=== PATIENT | female | born 1950 | race Caucasian/White ===

== ENCOUNTER 2018-05-24 12:39 | Outpatient (CLI) | payer MEDICARE, BC ==
--- NOTE | 2018-05-24 12:53 | RAD ---
TWO VIEWS CHEST: HISTORY: Dyspnea. COMPARISON: 04/29/12. FINDINGS: Slight elongation of the aorta. Normal cardiac silhouette. The pulmonary vessels and hilum are norm al. Costophrenic angles are clear. No consolidation or masses. No pneumothorax or osseous abnormal ities. Bilateral breast augmentation implants are noted. Stable density in the right suprahilar region. IMPRESSION: No acute cardiopulmonary process. POS: [facility]
== END 2018-05-24 12:40 | disposition home or self-care (01) ==
LOC: RAD 12:39
PROVIDERS: ATTEND Internal Medicine
DX: R06.00 Dyspnea, unspecified (principal)
CPT/HCPCS: 71046

== ENCOUNTER 2018-07-02 12:06 | Outpatient (CLI) | payer MEDICARE, BC | END 2018-07-02 12:07 | disposition home or self-care (01) | LOC: CP 12:06 | PROVIDERS: ATTEND Internal Medicine | DX: J45.909 Unspecified asthma, uncomplicated (principal); R06.09 Other forms of dyspnea | CPT/HCPCS: 94060; 94727 ==

== ENCOUNTER 2018-12-05 16:00 | Outpatient (CLI) | payer MEDICARE, BC | END 2018-12-05 16:01 | disposition home or self-care (01) | LOC: SLEEPLAB 16:00 | PROVIDERS: ATTEND Internal Medicine | DX: G47.33 Obstructive sleep apnea (adult) (pediatric) (principal); R53.83 Other fatigue; R09.89 Other specified symptoms and signs involving the circulatory and respiratory systems; R51 Headache; R06.83 Snoring; K21.9 Gastro-esophageal reflux disease without esophagitis; R35.1 Nocturia; I10 Essential (primary) hypertension | CPT/HCPCS: 95806 ==

== ENCOUNTER 2019-01-03 10:06 | Outpatient (CLI) | payer MEDICARE, BC ==
--- NOTE | 2019-01-03 11:06 | RAD ---
TWO VIEWS LUMBOSACRAL SPINE: COMPARISON: None. HISTORY: Multiple back injuries with left low back pain. FINDINGS: Two views lumbosacral spine show normal height and alignment of the vertebral bodies without fracture or subluxation. The L5-S1 intervertebral disk is narrowed. Moderate posterior facet arthrosis is s een in the lower lumbosacral spine. Osteophytes are seen surrounding L5-S1. IMPRESSION: Degenerative changes of the lower lumbosacral spine without acute osseous abnormality. POS: [facility]
== END 2019-01-03 10:07 | disposition home or self-care (01) ==
LOC: BICRAD 10:06
PROVIDERS: ATTEND Specialist
DX: M54.5 Low back pain (principal); M47.817 Spondylosis without myelopathy or radiculopathy, lumbosacral region
CPT/HCPCS: 72100

== ENCOUNTER 2019-10-28 06:25 | Outpatient (CLI) | payer MEDICARE, BC ==
[2019-10-28 15:45] LABS: Anion Gap 11 mmol/L (10-20); BUN (Urea Nitrogen) 23 mg/dL (9.8-20.1); Calc. Creatinine Clearance 0 mL/min (70-130); Calcium 9.3 mg/dL (7.8-10.44); Carbon Dioxide 27 mmol/L (23-31); Chloride 109 mmol/L (98-107); Estimated GFR-MDRD 67; Glucose 94 mg/dL (80-115); Potassium 4.2 mmol/L (3.5-5.1); Sodium 143 mmol/L (136-145)
== END 2019-10-28 06:26 | disposition home or self-care (01) ==
LOC: LABBT 06:25
PROVIDERS: ATTEND Neurological Surgery
DX: Z01.818 Encounter for other preprocedural examination (principal); M54.16 Radiculopathy, lumbar region
CPT/HCPCS: 80048; 93005; 93010

== ENCOUNTER 2019-11-03 06:21 | Day surgery (SDC) | payer MEDICARE, BC ==
[2019-10-28 14:10] VITALS: BMI 29.8
--- NOTE | 2019-11-02 16:02 | HP ---
HISTORY OF PRESENT ILLNESS: Ms. Rock is a very pleasant 68-year-old woman, here today for evaluation of a severe right lower extremity L5, potentially S1 pattern of pain, which she has had since the beginning of the year. She has treated this with time, exercise, medications, and epidural steroid injections with Dr. Guerrero. Although they helped her a great deal, her symptoms continued to worsen and return. Pains are significantly worsened when walking or standing for even short periods of time. MRI from the [facility] reveals a severe lateral recess stenosis at L4-L5 and L5-S1 that would potentially fit her symptoms. CURRENT PHYSICAL EXAMINATION: The patient is alert and oriented x3. Cranial nerve function is normal. Gait is normal. No ataxia. Lower extremity motor exam reveals 5/5 strength in all movements of the bilateral lower extremities. Positive right straight leg raise. PAST MEDICAL HISTORY: Significant for hypothyroidism, hypertension, and anxiety. CURRENT MEDICATIONS: 1. Gabapentin. 2. Furosemide. 3. Olmesartan. 4. Duloxetine. 5. Hydralazine. 6. Levothyroxine. PAST SURGICAL HISTORY: Thyroidectomy, unspecified neck surgery, and gastric sleeve. ALLERGIES: NO KNOWN DRUG ALLERGIES. ASSESSMENT: Lumbar radiculopathy. PLAN: Dr. Pizano met with the patient, reviewed imaging, advocated for a right L4 through S1 decompression with a right L5 foraminotomy. He explained to the patient the risks, benefits, and alternatives to the procedure. The patient expressed understanding and elected to move forward with surgery as discussed. I do believe the patient is mentally competent and capable of making medical decisions for herself. We will move forward with surgery as planned. Job ID: [id number]
[2019-11-03] MEDS ORDERED: Fentanyl 100 MCG/2 ML VIAL ONE ×3 (08:32→10:51)
[2019-11-03] MEDS ORDERED: Midazolam HCl 2 mg/2 ml Vial ONE (08:32)
[2019-11-03] MEDS ORDERED: Bupivacaine PF 0.5% 30 ML VIAL ONE (08:43)
[2019-11-03] MEDS ORDERED: Rocuronium Bromide 10 MG/ML (10ML VIAL) ONE (09:46)
[2019-11-03] MEDS ORDERED: Ketorolac Tromethamine 30 MG/ML VIAL ONE (09:46)
[2019-11-03] MEDS ORDERED: Lidocaine 1% PF 5 ML VIAL ONE (09:46)
[2019-11-03] MEDS ORDERED: PHENYLEPHRINE-NS 100 MCG/ML 10 ML SYRINGE ONE (09:46)
[2019-11-03] MEDS ORDERED: PROPOFOL 200 MG/20 ML VIAL ONE (09:46)
[2019-11-03] MEDS ORDERED: ePHEDrine/0.9% NaCl/PF SYRINGE 50 mg/10 ml ONE (09:46)
[2019-11-03] MEDS ORDERED: Ondansetron PF 4 MG/2 ML Vial ONE (09:46)
[2019-11-03] MEDS ORDERED: Dexamethasone 20 MG/5 ML VIAL ONE (09:46)
[2019-11-03] MEDS ORDERED: Glycopyrrolate 0.2 MG/ML 5 ML SYRINGE ONE (09:46)
[2019-11-03] MEDS ORDERED: Acetaminophen/Codeine 30-300mg Tablet ONE (11:45)
--- NOTE | 2019-11-03 11:48 | OP ---
DATE OF PROCEDURE: 11/03/2019 PATIENT SCHEDULING MANAGER: Adrian Helms PA-C INDICATION: Pain. DIAGNOSIS: Lumbar stenosis with lumbar radiculopathy. PROCEDURES PERFORMED: Right L4-L5, L5-S1 hemilaminectomy, medial facetectomy, right L5 foraminotomy. ANESTHESIA: General. DESCRIPTION OF PROCEDURE: The patient was brought into the operating room and placed under general anesthesia. She was flipped from the supine to prone position on the operating room table. A linear incision was planned spanning L4 through S1. After prepping and draping and after an appropriate perioperative pause, the incision was created. The soft tissues were swept right of midline. After confirming the appropriate level with C-arm fluoroscopy, high-speed cutting drill bit as well as 2, 3, and 4 mm Kerrisons were used to perform a complete hemilaminectomy of L5 and an inferior laminectomy along the inferior aspect of L4 on the right. This decompressed the L4-L5 and L5-S1 segments. The L5 nerve root was identified and followed out the foramina of L5, where a foraminotomy was also performed. After completing the decompression, the wound was irrigated. Hemostasis was maintained throughout. The wound was then closed in anatomic layers and a pressure dressing was applied. There were no known procedural complications. Job ID: [id number]
== END 2019-11-03 12:55 | disposition home or self-care (01) ==
LOC: SDC 06:21
PROVIDERS: ATTEND Neurological Surgery
PROC: 01NB0ZZ Release Lumbar Nerve, Open Approach (ICD-10-PCS; principal; 2019-11-03)
DX: M48.061 Spinal stenosis, lumbar region without neurogenic claudication (principal); M54.16 Radiculopathy, lumbar region; I10 Essential (primary) hypertension; E89.0 Postprocedural hypothyroidism; F41.9 Anxiety disorder, unspecified; Z79.899 Other long term (current) drug therapy
CPT/HCPCS: 76000; J0690; J1100; J1885; J2001; J2250; J2405; J2704; J3010; S0020

== ENCOUNTER 2020-09-23 09:27 | Outpatient (CLI) | payer MEDICARE, BC ==
--- NOTE | 2020-09-23 11:32 | ULT ---
VENOUS DOPPLER ULTRASOUND OF THE RIGHT LOWER EXTREMITY: Date: 09/23/2020 HISTORY: Right lower extremity edema. TECHNIQUE: Don scale ultrasound with color flow and spectral Doppler imaging of the deep venous system of the r ight lower extremity performed. FINDINGS: There is good flow, compression, and augmentation noted in the right common femoral, femoral, deep fe moral, popliteal, posterior tibial, and greater saphenous veins. IMPRESSION: No evidence of deep venous thrombosis in the right lower extremity. POS: [facility]
--- NOTE | 2020-09-23 11:38 | RAD ---
LEFT HIP 2 VIEWS:: Date: 09/23/2020 HISTORY: Left hip pain. FINDINGS/IMPRESSION: No fracture, dislocation, or bony destruction is seen. No significant arthritic changes are noted. POS: [facility]
== END 2020-09-23 09:28 | disposition home or self-care (01) ==
LOC: BICULT 09:27
PROVIDERS: ATTEND Specialist
DX: M25.552 Pain in left hip (principal)

== ENCOUNTER 2020-10-18 12:25 | Outpatient (CLI) | payer MEDICARE, BC ==
--- NOTE | 2020-10-18 14:18 | MRI ---
MRI LUMBAR SPINE NONCONTRAST: DATE: 10/18/2020 HISTORY: 69-year-old female COMPARISON: 01/10/2019 FINDINGS: 2.5 x 2 cm right renal cyst exophytically protruding from anterior parenchyma of right renal midpole, minimally larger than in 09/13/2015. There are 5 lumbar-type vertebrae. Vertebral body heights are maintained. Modic type II endplate kylah ow changes at L5-S1. No significant bone marrow edema at any level. Conus medullaris terminates at upper L2. T12-L1:Essentially normal L1-2:Minimal retrolisthesis of L1 on L2. Minimal disc bulge. No central or neural foraminal stenosis. No high-grade disc space narrowing. No interval change. L2-3:Mild disc bulge. Minimal retrolisthesis of L2 on L3. No high-grade disc space narrowing. Mild bi lateral facet DJD. No significant central spinal canal stenosis. Mild bilateral neural foraminal stenosis. The neural foraminal stenosis appears minimally worse than before. L3-4:Severe bilateral facet DJD causes grade 1 anterolisthesis of L3 on L4. Mild disc space narrowing . Prominent diffuse disc bulge. Moderate to severe ligamentum flavum thickening. The disc bulge is slightly larger than before. Previously, there was a superimposed central, left paracentral small dis c extrusion. That is currently smaller than before, and much less conspicuous now. Moderate central spinal canal stenosis, similar to prior MRI. Mild to moderate bilateral neural foraminal stenosis, si milar to prior MRI. L4-5:Mild to moderate disc space narrowing. Prominent diffuse disc bulge. Superimposed shallow centra l and bilateral paracentral disc protrusion appears slightly larger than before, and it further indents the thecal sac. Moderate to severe right and moderate left facet DJD. Mild to moderate right and mild left neural foraminal stenosis have not significantly changed. Moderate thecal sac stenosis appears minimally worse than before. L5-S1:Severe disc space narrowing, endplate irregularity, and Modic type II endplate changes. Degener ative retrolisthesis of L5 on S1. Mild broad-based disc-osteophyte complex indents thecal sac and abuts bilateral S1 nerve roots at lateral recesses. No high-grade central spinal canal stenosis. Mild bilateral facet DJD. Mild to moderate bilateral neural foraminal stenosis, unchanged. IMPRESSION: 1) grade 1 spondylolisthesis at L3-4 due to severe bilateral facet osteoarthrosis, causing moderate c entral spinal canal stenosis. 2) central and bilateral paracentral disc protrusion at L4-5 is slightly larger now than on 01/10/2019 , causing moderate central spinal canal stenosis. 3) the small disc extrusion at L3-4 has become slightly smaller than on 01/10/2019. 4) lumbar spondylosis consisting of facet osteoarthrosis and degenerative disc disease of varying deg mikal.
== END 2020-10-18 12:26 | disposition home or self-care (01) ==
LOC: BICMRI 12:25
PROVIDERS: ATTEND Specialist
DX: M54.5 Low back pain (principal); M51.26 Other intervertebral disc displacement, lumbar region; M47.816 Spondylosis without myelopathy or radiculopathy, lumbar region; M51.36 Other intervertebral disc degeneration, lumbar region; M48.061 Spinal stenosis, lumbar region without neurogenic claudication; M43.16 Spondylolisthesis, lumbar region
CPT/HCPCS: 72148

== ENCOUNTER 2020-11-03 07:27 | Outpatient (CLI) | payer MEDICARE, BC ==
--- NOTE | 2020-11-03 10:08 | MRI ---
BRAIN MRI WITHOUT CONTRAST: HISTORY: Numbness and tingling in the whole body. COMPARISON: None. FINDINGS: Calvarium has a normal T1 marrow signal intensity. Midline brain parenchymal structures are unremark able. No hemorrhage on the axial gradient echo sequence. No parenchymal mass, mass effect, or midline shift. Brain volume is age appropriate. Cortical arteaga-white matter differentiation is preserved. No hydrocephalus. Scattered T2 and FLAIR white matter hyperintensities are nonspecific but are presumed to be due to ch ronic small-vessel ischemic change. Central arterial flow voids are maintained. Absent restricted diffusion. IMPRESSION: No acute intracranial process. POS: [facility]
--- NOTE | 2020-11-03 10:48 | MRI ---
CERVICAL SPINE CT WITHOUT CONTRAST: HISTORY: Dyschesia. Edema. Numbness and tingling in the whole body. COMPARISON: 01/10/2019. FINDINGS: Appropriate T1 marrow signal intensity of the cervical vertebrae. Cervical spine vertebral body heig ht is maintained. No fracture. There is stable metallic susceptibility artifact from a C5-C6 fusion . No significant STIR hyperintensity to suggest ligamentous injury or vertebral body edema. Visualized brain parenchyma, cervicomedullary junction, cervical cord, and the upper thoracic cord mitchell ve a normal size and signal intensity. C2-C3: No significant central canal stenosis or significant neural foraminal narrowing. C3-C4: Disk desiccation with moderate loss of disk space height. Broad-based disk-osteophyte comple x is redemonstrated. Effacement of the subarachnoid space. Mass effect upon the ventral cervical co rd. Stable mild central canal stenosis. There is bilateral facet and uncovertebral hypertrophy resu lting in moderate bilateral neural foraminal narrowing. C4-C5: Adequate disk hydration. No posterior disk abnormality. No significant central canal stenos is. There is right facet hypertrophy. Patent bilateral neural foramina. C5-C6: Disk prosthesis. Broad-based osteophyte ridge nearly effaces the subarachnoid space. Mild c entral canal stenosis. Right facet hypertrophy. Patent bilateral neural foramina. C6-C7: No significant central canal stenosis or significant neural foraminal narrowing. C7-T1: No significant central canal stenosis or significant neural foraminal narrowing. IMPRESSION: 1. Stable cervical fusion. 2. Stable degenerative changes throughout the cervical spine as described above. POS: [facility]
== END 2020-11-03 07:28 | disposition home or self-care (01) ==
LOC: TBSIIMAG 07:27
PROVIDERS: ATTEND Neurological Surgery
DX: R60.0 Localized edema (principal); R20.8 Other disturbances of skin sensation; M47.812 Spondylosis without myelopathy or radiculopathy, cervical region; Z98.1 Arthrodesis status
CPT/HCPCS: 70551; 72141

== ENCOUNTER 2022-02-21 13:59 | Outpatient (CLI) | payer MEDICARE, BC | END 2022-02-21 14:00 | disposition home or self-care (01) | LOC: MRI 13:59 | PROVIDERS: ATTEND Specialist | DX: M51.16 Intervertebral disc disorders with radiculopathy, lumbar region (principal); M47.26 Other spondylosis with radiculopathy, lumbar region | CPT/HCPCS: 72148 ==

== ENCOUNTER 2022-03-21 12:29 | Outpatient (CLI) | payer MEDICARE, BC | END 2022-03-21 12:30 | disposition home or self-care (01) | LOC: RAD 12:29 | PROVIDERS: ATTEND Specialist | DX: S40.212A Abrasion of left shoulder, initial encounter (principal); W19.XXXA Unspecified fall, initial encounter ==

== ENCOUNTER 2022-03-30 14:11 | Outpatient (CLI) | payer MEDICARE, BC | END 2022-03-30 14:12 | disposition home or self-care (01) | LOC: BICRAD 14:11 | PROVIDERS: ATTEND Specialist | DX: M25.511 Pain in right shoulder (principal); M25.531 Pain in right wrist; M79.601 Pain in right arm; Z91.81 History of falling ==

== ENCOUNTER 2022-06-01 07:22 | Outpatient (CLI) | payer MEDICARE, BC ==
[2022-06-01] MEDS ORDERED: Iopamidol 370 76% 100 ML VIAL ONE (13:30)
== END 2022-06-01 07:23 | disposition home or self-care (01) ==
LOC: CT 07:22
PROVIDERS: ATTEND Specialist
DX: M79.604 Pain in right leg (principal); K63.89 Other specified diseases of intestine; E27.8 Other specified disorders of adrenal gland; N28.9 Disorder of kidney and ureter, unspecified
CPT/HCPCS: 75635; 82565; Q9967

== ENCOUNTER 2022-06-20 07:59 | Outpatient (CLI) | payer MEDICARE, BC ==
[2022-06-20] MEDS ORDERED: Iopamidol-370 76% 500 ML 1 ML ONE (11:33)
== END 2022-06-20 08:00 | disposition home or self-care (01) ==
LOC: BICCT 07:59
PROVIDERS: ATTEND Internal Medicine Gastroenterology
DX: C18.9 Malignant neoplasm of colon, unspecified (principal); E27.9 Disorder of adrenal gland, unspecified
CPT/HCPCS: 71260; 74177; Q9967